=== PATIENT | female | born 1980 | race Caucasian/White ===

== ENCOUNTER 2020-12-20 09:43 | Emergency (ER) | payer BC ==
[~2020-12-20] VITALS: Ht 167.6 cm; Wt 83.9 kg
[~2020-12-20 09:43] MED LIST: Verotin-Gr Cap1 EACH PO
[2020-12-20] MEDS ORDERED: FAMO20 PO (09:56)
[2020-12-20] MEDS ORDERED: MONT10T PO (10:00)
[2020-12-20] MEDS ORDERED: ALBU2.5V5 INH (10:00)
[2020-12-20 10:39] LABS: BASOPHILS ABSOLUTE AUTO 0.04 K/mm3 (0.00-0.23); BASOPHILS PERCENT AUTO 1 % (0-2); EOSINOPHILS ABSOLUTE AUTO 0.01 K/mm3 (0.00-0.68); EOSINOPHILS PERCENT AUTO 0 % (0-6); Hematocrit 41.3 % (33.0-51.0); IMMATURE GRAN ABSOLUTE AUTO 0.02 K/mm3 (0.00-0.10); IMMATURE GRAN PERCENT AUTO 0 % (0-1); LYMPHOCYTES PERCENT AUTO 18 % (21-46); MONOCYTES ABSOLUTE AUTO 0.26 K/mm3 (0.16-1.47); MONOCYTES PERCENT AUTO 4 % (4-13); Mean Corpuscular HGB Conc 33.9 g/dL (31.5-36.5); Mean Corpuscular Volume 89 fL (80-100); Mean Platelet Volume 9.2 fL (9.1-12.4); NEUTROPHILS ABSOLUTE AUTO 4.55 K/mm3 (1.96-9.15); NEUTROPHILS PERCENT AUTO 76 % (41-73); Platelet Count 375 K/mm3 (150-400); RDW Coefficient Variation 11.9 % (11.7-14.2); Red Blood Cell Count 4.66 M/mm3 (3.80-5.20); White Blood Cell Count 5.98 K/mm3 (4.00-11.30)
[2020-12-20 10:59] LABS: Alanine Aminotransfer (ALT/SGP 31 U/L (12-78); Albumin, Blood 4.4 g/dL (3.4-5.0); Albumin/Globulin Ratio 1.3 (0.8-1.8); Alk Phos 45 U/L (50-136); Anion Gap 5 mmol/L (6-16); Aspartate Aminotrans (AST/SGOT 13 U/L (12-37); Beta HCG, Quantitative, Serum <1 mIU/mL (0-3); Bilirubin, Total 0.9 mg/dL (0.1-1.0); Blood Urea Nitrogen 8 mg/dL (8-24); Bun/Creatinine Ratio 11.6 (12.0-20.0); CO2, Blood 26 mmol/L (21-32); Calcium, Blood 8.8 mg/dL (8.5-10.1); Chloride, Blood 109 mmol/L (98-108); Creatinine, Blood 0.69 mg/dL (0.40-1.00); Globulin, Blood 3.5 g/dL (2.2-4.0); Glomerular Filtration Rate >60 (60-); Glucose, Blood 107 mg/dL (70-99); Potassium, Blood 3.6 mmol/L (3.5-5.5); Sodium, Blood 140 mmol/L (136-145); Total Protein, Blood 7.9 g/dL (6.4-8.2)
[2020-12-20] MEDS ORDERED: ZOFRAN8 MG PO (11:32)
[2020-12-20] MEDS ORDERED: OMEPRAZOLE MAGN20 MG PO (11:32)
[2021-02-21] MEDS ORDERED: CLARITIN-D 121 EAC1 PO (08:50)
[2021-02-21] MEDS ORDERED: IBUP800 PO (08:51)
[2021-02-21] MEDS ORDERED: ERGO50000 PO (08:53)
[2021-02-21] MEDS ORDERED: PSEUDOEPHEDRINE30 M1 PO (08:53)
[2021-02-21] MEDS ORDERED: MOBIC15 MG PO (08:53)
[2021-02-21] MEDS ORDERED: LO LOESTRIN FE (08:58)
== END 2020-12-20 11:51 | disposition home or self-care (01) ==
LOC: ER 09:43
PROVIDERS: Emergency Medicine
DX: U07.1 COVID-19 (principal); K29.70 Gastritis, unspecified, without bleeding; Z79.899 Other long term (current) drug therapy
CPT/HCPCS: 36415; 76705; 80053; 83690; 84702; 85025; 93005; 93010; 96374; 96375; 99285-25; A9270; C9113; J2405

== ENCOUNTER 2021-02-28 08:32 | Day surgery (SDC) | payer BC ==
[~2021-02-28] VITALS: Ht 175.3 cm; Wt 88.8 kg
[~2021-02-28 08:32] MED LIST changes: +ALBU2.5V5 INH; +CLARITIN-D 121 EAC1 PO; +ERGO50000 PO; +FAMO20 PO; +IBUP800 PO; +LO LOESTRIN FE; +MOBIC15 MG PO; +MONT10T PO; +OMEPRAZOLE MAGN20 MG PO; +PSEUDOEPHEDRINE30 M1 PO; +ZOFRAN8 MG PO
== END 2021-02-28 10:38 | disposition home or self-care (01) ==
LOC: ORSCSDS 08:32
PROVIDERS: Internal Medicine Gastroenterology
PROC: 0DB58ZX Excision of Esophagus, Via Natural or Artificial Opening Endoscopic, Diagnostic (ICD-10-PCS; principal; 2021-02-28 09:45)
PROC: 0DB68ZX Excision of Stomach, Via Natural or Artificial Opening Endoscopic, Diagnostic (ICD-10-PCS; principal; 2021-02-28 09:45)
DX: K21.9 Gastro-esophageal reflux disease without esophagitis (principal); Q39.8 Other congenital malformations of esophagus; J45.909 Unspecified asthma, uncomplicated; E11.9 Type 2 diabetes mellitus without complications; R19.4 Change in bowel habit; Z79.899 Other long term (current) drug therapy
CPT/HCPCS: 88305; 88342; J2704; J7120

== ENCOUNTER → 2023-04-02 | Outpatient (CLI) | payer BC ==
[2023-04-02 21:11] LABS: Candida species (DNA Probe) Positive (NEGATIVE); G. vaginalis (DNA Probe) Negative (NEGATIVE); T. vaginalis (DNA Probe) Negative (NEGATIVE)
== END | disposition home or self-care (01) ==
LOC: LAB SHORT 17:30 → LAB 17:30
PROVIDERS: Nurse Practitioner
DX: N76.0 Acute vaginitis (principal)
CPT/HCPCS: 87480; 87510; 87660

== ENCOUNTER 2024-05-12 20:38 | Emergency (ER) | payer BC ==
[~2024-05-12] VITALS: Ht 175.3 cm; Wt 97.5 kg
[2024-05-12 21:07] VITALS: BP 185/109
== END 2024-05-12 21:38 | disposition home or self-care (01) ==
LOC: ER 20:38
DX: M79.605 Pain in left leg (principal); M79.604 Pain in right leg; J45.909 Unspecified asthma, uncomplicated; Z79.899 Other long term (current) drug therapy; Z88.8 Allergy status to other drugs, medicaments and biological substances
CPT/HCPCS: 99282